=== PATIENT | female | born 1965 | race Caucasian/White ===

== ENCOUNTER 2019-06-23 21:12 | Emergency (ER) | payer OTHER ==
[~2019-06-23] VITALS: Ht 152.4 cm; Wt 52.2 kg
[2019-06-23 21:30] VITALS: BP 152/96
--- NOTE | 2019-06-23 21:33 | NUR ---
TO LOBBY A/W BED AMBULATORY
--- NOTE | 2019-06-23 21:54 | NUR ---
PT AMBULATED TO BED 11 WITH FAMILY MEMBER
--- NOTE | 2019-06-23 22:30 | NUR ---
PT C/O HIGH BP. PT STATES SHE GETS ANXIOUS AND BP ELEVATES. PT DENIES RINGING IN EAR, BONE, BLURRED VISION. PT BP 15Os. PT APPPEARS TO BE IN NO DISTRESS. DENIES N/V/D; SKIN IS PINK/WARM/DRY; AAOX4 WITH EVEN AND STEADY GAIT; LUNGS CLEAR BL; HR EVEN AND REGULAR; PT DENIES ANY FEVER, CP, SOB, OR COUGH AT THIS TIME; PATIENT STATES PAIN OF 0/10 AT THIS TIME; VSS; PATIENT POSITIONED FOR COMFORT; HOB ELEVATED; BEDRAILS UP X2; BED DOWN. ER MD MADE AWARE OF PT STATUS.
[2019-06-23] MEDS ORDERED: LISINOPRIL 20 MG TAB PO ONE (23:15)
--- NOTE | 2019-06-23 23:18 | NUR ---
DR. KERN AT BEDSIDE ASSESSING PT.
--- NOTE | 2019-06-24 00:36 | NUR ---
PT BP IMOROVED AFTER LABETOLOL. PT APPEARS TO BE IN NO DISTRESS. VSS. DR. KERN AWARE.
[2019-06-24 00:37] VITALS: BP 135/85
--- NOTE | 2019-06-24 00:37 | NUR ---
Patient discharged with v/s stable. Written and verbal after care instructions given and explained. Patient verbalized understanding. Ambulatory with steady gait. All questions addressed prior to discharge. Advised to follow up with PMD.
--- NOTE | 2019-06-24 00:42 | NUR ---
DR. ERLIN CONNELL PT.
== END 2019-06-24 00:37 | disposition home or self-care (01) ==
LOC: MED 21:12
DX: I10 Essential (primary) hypertension (principal)
CPT/HCPCS: 99283

== ENCOUNTER 2019-06-24 01:43 | Emergency (ER) | payer OTHER ==
[~2019-06-24] VITALS: Ht 152.4 cm; Wt 52.2 kg
[2019-06-24 02:00] VITALS: BP 150/90
--- NOTE | 2019-06-24 02:05 | NUR ---
TO LOBBY A/W BED AMBULATORY
--- NOTE | 2019-06-24 02:14 | NUR ---
EKG PERFORMED IN TRIAGE ROOM WITH TRIAGE NURSE AND FAMILY MEMBER PRESENT
--- NOTE | 2019-06-24 03:23 | NUR ---
PT AMBULATED TO BED 12 WITH FAMILY MEMBER
[2019-06-24 03:45] VITALS: BP 144/88
--- NOTE | 2019-06-24 03:45 | NUR ---
PT JUST SEEN 2 HOURS AGO AT ED FOR HIGH BP. PT NOW C/O CHEST BURNING WHEN LAYINGDOWN. PT STATES STARTED 1 HOUR AGO. PT APPEARS TO BE IN NO DISTRESS. VSS. EKG NSR AND GIVEN TO DR. KERN. DENIES N/V/D; SKIN IS PINK/WARM/DRY; AAOX4 WITH EVEN AND STEADY GAIT; LUNGS CLEAR BL; HR EVEN AND REGULAR; PT DENIES ANY FEVER, SOB, OR COUGH AT THIS TIME; PATIENT STATES PAIN OF 5/10 AT THIS TIME; VSS; PATIENT POSITIONED FOR COMFORT; HOB ELEVATED; BEDRAILS UP X2; BED DOWN. ER MD MADE AWARE OF PT STATUS.
--- NOTE | 2019-06-24 03:49 | NUR ---
DR. KERN AT BEDSIDE DC PATIENT. Patient discharged with v/s stable. Written and verbal after care instructions given and explained. Patient verbalized understanding. Ambulatory with steady gait. All questions addressed prior to discharge. Advised to follow up with PMD.
== END 2019-06-24 03:49 | disposition home or self-care (01) ==
LOC: MED 01:43
DX: R00.2 Palpitations (principal); F41.9 Anxiety disorder, unspecified; I10 Essential (primary) hypertension
CPT/HCPCS: 93005; 99283

== ENCOUNTER 2023-03-01 06:57 | Day surgery (SDC) | payer OTHER ==
[~2023-03-01] VITALS: Ht 154.9 cm; Wt 48.1 kg
[2023-03-01] MEDS ORDERED: fentaNYL citrate 0.05 MG/ML VIAL ONE (07:38)
[2023-03-01] MEDS ORDERED: SIMETHICONE 40 MG/0.6 ML PO PRN (09:30)
[2023-03-01] MEDS ORDERED: fentaNYL citrate 0.05 MG/ML VIAL IVP ONE (09:30)
[2023-03-01] MEDS ORDERED: LIDOCAINE 2% 100 MG/5 ML UJET TP ONE (09:30)
[2023-03-01] MEDS ORDERED: SIMETHICONE 40 MG/0.6 ML ONE (09:47)
== END 2023-03-01 09:48 | disposition home or self-care (01) ==
LOC: MDS 06:57 → MMU 06:57 → MDS 09:48
PROVIDERS: ATTEND Internal Medicine Gastroenterology
DX: Z12.11 Encounter for screening for malignant neoplasm of colon (principal); I10 Essential (primary) hypertension; F41.9 Anxiety disorder, unspecified; F32.A Depression, unspecified; K21.9 Gastro-esophageal reflux disease without esophagitis; Z79.899 Other long term (current) drug therapy
CPT/HCPCS: 45378; J3010